=== PATIENT | female | born 1995 | race Caucasian/White ===

== ENCOUNTER 2020-11-14 16:54 | Emergency (ER) | payer OTHER ==
[~2020-11-14] VITALS: Ht 152.4 cm; Wt 52.3 kg
[2020-11-14 18:33] VITALS: BP 124/65
== END 2020-11-14 18:34 ==
LOC: EMS 16:54
DX: Z03.89 Encounter for observation for other suspected diseases and conditions ruled out (principal)
CPT/HCPCS: 71046; 99283